=== PATIENT | male | born 1955 | race Caucasian/White ===

== ENCOUNTER 2019-09-02 15:32 | Emergency (ER) | payer OTHER, SELFPAY ==
[2019-09-02 15:43] VITALS: BP 172/104; PULSE 85; RESP 18; TEMP 36.6; O2SAT 99
--- NOTE | 2019-09-02 16:09 | ED.GENADULT ---
HPI - General Adult General Chief complaint: Unspecified Stated complaint: elevated bp Time Seen by Provider: 09/02/19 16:12 Source: patient and RN notes reviewed Mode of arrival: ambulatory Limitations: no limitations History of Present Illness HPI narrative: 64-year-old male presents with concern for elevated blood pressure. Reports he was seen at his eye doctor yesterday and had a blood pressure reading of 169/104. Reports he checked it at a station at [facility] today and it was 198/104. He reports in the past he has had elevated blood pressure, but not quite this high . He reports recently he has been taking [id number] cold medicine that had a warning that it may raise his blood pressure. He denies headache, vision changes, dizziness, weakness, numbness, fatigue. MD complaint: Elevated blood pressure Related Data Home Medications Medication Instructions Recorded Confirmed atorvastatin 40 mg tablet 40 mg PO DAILY 04/21/19 09/02/19 Co-Yvon 09/02/19 niacin 09/02/19 Allergies Allergy/AdvReac Type Severity Reaction Status Date / Time No Known Allergies Allergy Verified 09/02/19 15:48 Review of Systems Review of Systems: Narrative: CONSTITUTIONAL: Denies malaise, chills, sweats, or fever. EYES: Denies visual changes, redness, or discharge. CARDIOVASCULAR: Denies chest pain, palpitations, or edema. RESPIRATORY: Denies cough or dyspnea. GASTROINTESTINAL: Denies abdominal pain, nausea, vomiting GENITOURINARY: Denies dysuria or hematuria. NEUROLOGIC: Denies numbness, weakness, or headache. All systems reviewed & are unremarkable except as noted in HPI and below PMFSH Social History Social History Smoking status: Never smoker Comments At time of signature, agree with nursing past medical, surgical, social and family history. There is no relevant family history pertinent to the presenting complaint Exam Narrative: Exam Narrative: GENERAL: Well-appearing, well-nourished, and in no acute distress. HEAD: Normocephalic, atraumatic. EYES: PERRLA, conjunctivae clear, and EOMI. No nystagmus. Ophthalmoscope exam unremarkable ENT: Nares clear, turbinates edematous boggy, clear rhinorrhea mucous membranes moist. TM pearly darden with sharp light reflex bilaterally; no tragal tenderness. Oropharynx without erythema or lesions. Tonsils not enlarged and without exudate. NECK: Supple. No lymphadenopathy. No jugular venous distension, thyromegaly, or carotid bruits. CHEST: No respiratory distress. Clear to auscultation. No bony deformities, no asymmetry. Speaks in full sentences. HEART: Regular rate and rhythm. No murmur heard. Normal peripheral pulses. EXTREMITIES: Normal range of motion. No edema. Normal strength and sensation. SKIN: Warm, dry, no rash. NEURO: Alert and oriented x3. No focal deficits. Cranial nerves II through XII grossly intact PSYCH: Normal mood and affect Course Course Emergency Course: Patient is aware of diagnosis, understands and agrees to treatment plan. Anticipatory guidance given. Patient agrees to follow-up as directed and is aware of reasons to seek care at the emergency department. Portions of this record may have been created with voice recognition software Vital Signs Vital signs: Vital Signs Temperature 97.9 F 09/02/19 15:43 Pulse Rate 85 09/02/19 15:43 Respiratory Rate 18 09/02/19 15:43 Blood Pressure 172/104 H 09/02/19 15:43 Pulse Oximetry 99 09/02/19 15:43 Temperature 97.9 F 09/02/19 15:43 Pulse Rate 85 09/02/19 15:43 Respiratory Rate 18 09/02/19 15:43 Blood Pressure 172/104 H 09/02/19 15:43 Pulse Oximetry 99 09/02/19 15:43 Reviewed. Pt has been instructed to follow up with his primary care provider within the next week regarding his elevated blood pressure today. Medical Decision Making MDM Narrative Medical decision making narrative: Exam findings show no acute concerns or changes; patient
== END 2019-09-02 16:35 | disposition home or self-care (01) ==
PROVIDERS: Emergency Provider Nurse Practitioner; PCP Family Medicine
DX: R03.0 Elevated blood-pressure reading, without diagnosis of hypertension (principal); E78.00 Pure hypercholesterolemia, unspecified
CPT/HCPCS: 99211; G0463

== ENCOUNTER 2019-09-06 09:10 | Outpatient (CLI) | payer OTHER, SELFPAY ==
[2019-09-06 09:22] LABS: Basophils Absolute Auto 0.03 K/mm3 (0.00-0.10); Basophils Percent Auto 0.4 % (0.0-1.0); Eosinophils Percent Auto 1.5 % (1.0-6.0); Hematocrit 52.8 % (40.0-54.0); Hemoglobin 17.1 g/dL (14.0-18.0); Immature Granulocyte Absolute 0.04 K/mm3 (0.00-0.00); Immature Granulocyte Percent A 0.6 % (0.0-0.0); Lymphocytes Absolute Auto 1.59 K/mm3 (1.10-4.50); Lymphocytes Percent Auto 23.1 % (18.0-42.0); Mean Corpuscular HGB Conc 32.4 g/dL (32.0-36.0); Mean Corpuscular Hemoglobin 31.1 pg (27.0-31.0); Mean Platelet Volume 8.8 fl (8.7-11.0); Monocytes Absolute Auto 0.44 K/mm3 (0.10-0.90); Monocytes Percent Auto 6.4 % (2.0-11.0); Neutrophils Absolute Auto 4.7 K/mm3 (1.7-7.2); Platelet Count Result 309 K/mm3 (150-420); Red Cell Distribution Width 12.8 % (11.6-14.4); White Blood Count 6.9 K/mm3 (4.8-10.8)
[2019-09-06 10:08] LABS: Alanine Aminotransferase 56 U/L (16-63); Albumin Level 4.2 g/dL (3.4-5.0); Alkaline Phosphatase 90 U/L (46-116); Anion Gap 13.8 mmol/L (7-16); Aspartate Amino Transferase 23 U/L (15-37); Bilirubin,Total 0.4 mg/dL (0.00-1.00); Blood Urea Nitrogen 15 mg/dL (7-18); Calcium 9.3 mg/dL (8.5-10.1); Carbon Dioxide 29 mmol/L (21-32); Chloride 103 mmol/L (98-108); Cholesterol 183 mg/dL (0-200); Estimated Glomerular Filt Rate > 60; Glucose 111 mg/dL (70-99); HDL Direct 52 mg/dL (40-60); LDL Cholesterol Calculated 117 mg/dL (<130); Osmolality Calculated 293 mOsm/kg (285-295); Potassium 4.8 mmol/L (3.5-5.1); Sodium 141 mmol/L (136-145); Triglycerides 69 mg/dL (0-150)
[2019-09-06 10:28] LABS: Thyroid Stimulating Hormone Reflex 1.97 u/IU/mL (0.36-3.74)
== END 2019-09-06 09:11 | disposition home or self-care (01) ==
LOC: CHSLAB 09:12
PROVIDERS: PCP Family Medicine; Visit Provider Family Medicine
DX: I10 Essential (primary) hypertension (principal)
CPT/HCPCS: 36415; 80053; 80061; 84443; 85025

== ENCOUNTER 2021-09-01 14:45 | Outpatient (CLI) | payer MEDICARE, SELFPAY ==
[2021-09-01 14:59] LABS: Hematocrit 50.5 % (37.0-46.0); Hemoglobin 16.6 g/dL (12.4-15.3); Mean Corpuscular HGB Conc 32.9 g/dL (32.0-36.0); Mean Corpuscular Hemoglobin 31.6 pg (27.0-31.0); Mean Corpuscular Volume 96.2 fL (78.0-102.0); Platelet Count Result 339 K/mm3 (150-420); Red Blood Count 5.25 M/mm3 (4.70-6.10); Red Cell Distribution Width 12.6 % (11.6-14.4)
[2021-09-01 16:16] LABS: Alanine Aminotransferase 48 U/L (16-63); Albumin Level 3.9 g/dL (3.4-5.0); Alkaline Phosphatase 83 U/L (46-116); Anion Gap 11 mmol/L (8-16); Aspartate Amino Transferase 18 U/L (15-37); Bilirubin,Total 0.5 mg/dL (0.00-1.00); Blood Urea Nitrogen 15 mg/dL (7-18); Calcium 9.4 mg/dL (8.5-10.1); Carbon Dioxide 27 mmol/L (21-32); Chloride 103 mmol/L (98-108); Cholesterol 185 mg/dL (0-200); Estimated Glomerular Filt Rate > 60; Glucose 87 mg/dL (70-99); HDL Direct 44 mg/dL (40-60); LDL Cholesterol Calculated 118 mg/dL (<130); Osmolality Calculated 291 mOsm/kg (285-295); Potassium 4.3 mmol/L (3.5-5.1); Sodium 141 mmol/L (136-145); Total Protein 7.7 g/dL (6.4-8.2); Triglycerides 117 mg/dL (0-150); Vitamin B12 536 pg/mL (193-986)
[2021-09-01 16:25] LABS: Thyroid Stimulating Hormone Reflex 1.59 u/IU/mL (0.36-3.74)
== END 2021-09-01 14:46 | disposition home or self-care (01) ==
LOC: CHSLAB 14:49
PROVIDERS: PCP Family Medicine; Visit Provider Family Medicine
DX: E78.00 Pure hypercholesterolemia, unspecified (principal); I10 Essential (primary) hypertension; E11.9 Type 2 diabetes mellitus without complications; E53.8 Deficiency of other specified B group vitamins
CPT/HCPCS: 36415; 80053; 80061; 82607; 82746; 84443; 85027

== ENCOUNTER 2021-09-09 06:42 | Outpatient (CLI) | payer MEDICARE, SELFPAY ==
--- NOTE | ~2021-09-09 | MR_ITS ---
EXAMINATION: MR cervical spine wo con EXAM DATE: 09/09/2021 07:46 INDICATION: Pain In Both Arms W/Numbness/Tingling X2mo,S/P lifting Injury. TECHNIQUE: Multi-sequential, multiplanar MR images of the cervical spine were obtained without contra st. Axial T2, axial T2 MERGE sequence. Sagittal T1, T2, T2 fat saturation images also obtained. Th ere is no prior study for comparison. FINDINGS: There is moderate disc disease at C5-6 and C6-7. The spinal cord signal intensity and intr insic morphology is normal. Cervicomedullary junction is normal in appearance. There are no suspiciou s marrow signal abnormalities. Paraspinal soft tissue is unremarkable. The vertebral bodies are align ed in the AP dimension. Level by level evaluation: C2-C3: Disc does not extend beyond the endplate margin. Uncovertebral joint arthropathy: None. Facet joint arthropathy: Mild left. Neural foraminal stenosis: No stenosis. Central canal stenosis: No stenosis. C3-C4: There is a minimal diffuse disc bulge. Uncovertebral joint arthropathy: Mild to moderate bilateral. Facet joint arthropathy: Moderate bilateral. Neural foraminal stenosis: Moderate severe left, moderate right. Central canal stenosis: Mild. C4-C5: There is a minimal diffuse disc bulge. Uncovertebral joint arthropathy: Mild to moderate bilateral. Facet joint arthropathy: Moderate right, mild to moderate left. Neural foraminal stenosis: Mild to moderate right, mild left. Central canal stenosis: Mild. C5-C6: There is a mild diffuse disc bulge. Uncovertebral joint arthropathy: Moderate bilateral. Facet joint arthropathy: Mild to moderate bilateral. Neural foraminal stenosis: Moderate left, mild right. Central canal stenosis: Mild. C6-C7: There is a mild diffuse disc bulge. Uncovertebral joint arthropathy: Moderate right, mild left. Facet joint arthropathy: Mild bilateral. Neural foraminal stenosis: Moderate right, mild left. Central canal stenosis: Mild. C7-T1: Disc does not extend beyond the endplate margin. Uncovertebral joint arthropathy: Mild bilateral. Facet joint arthropathy: Mild bilateral. Neural foraminal stenosis: No stenosis. Central canal stenosis: No stenosis. IMPRESSION: 1. Moderate cervical spondylosis. 2. No acute findings. Reviewed, dictated and finalized at location G.
== END 2021-09-09 06:43 | disposition home or self-care (01) ==
LOC: CHSIMG 06:44
PROVIDERS: PCP Family Medicine; Visit Provider Family Medicine
DX: M54.12 Radiculopathy, cervical region (principal)
CPT/HCPCS: 72141

== ENCOUNTER 2022-01-31 06:40 | Outpatient (CLI) | payer MEDICARE, SELFPAY ==
--- NOTE | ~2022-01-31 | MR_ITS ---
EXAMINATION: MR lumbar spine wo con DATE: 01/31/2022 10:22 INDICATION: Lumbar radiculopathy TECHNIQUE: Magnetic resonance imaging (MRI) of the lumbar spine was performed without intravenous con trast. Sequences included sagittal T2-weighted FSE, sagittal T2-weighted FS FSE, sagittal T1-weighted FSE, and axial T2-weighted FSE. COMPARISON: None FINDINGS: Transitional thoracolumbar segment for purposes of this report designated L1 with right-sided transve rse process and small hypoplastic riblet on the left. There are 4 more caudal nonrib-bearing lumbar s egments L2-L5. 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 There is associated severe disc height loss and degenerative fibrovascular endplate abebe ges. Vertebral body heights are normal. Otherwise normal marrow signal. Remaining disc heights are p reserved. The conus medullaris terminates at L2. There is normal signal in the caudal spinal cord. Pa ravertebral soft tissues are unremarkable. The following disc levels are specifically discussed: T12-L1: The disc does not extend beyond the endplate margin. There is mild bilateral facet joint oste oarthritis. There is no neural foraminal stenosis. There is no central canal stenosis. L1-L2: Disc is bulging. There is mild bilateral facet joint osteoarthritis. There is mild bilateral n eural foraminal stenosis. There is mild central canal stenosis. L2-L3: Disc is bulging with annular fissure. There is mild bilateral facet joint osteoarthritis. Ther e is moderate bilateral neural foraminal stenosis. There is mild central canal stenosis. L3-L4: Disc is bulging with annular fissure and small right paracentral disc extrusion with disc mate rial extending couple millimeters cephalad to the level of the inferior endplate of L3 and measuring 5 x 3 mm maximal transaxial dimensions. There is mild bilateral facet joint osteoarthritis. There is altered left and mild to moderate right neural foraminal stenosis. There is mild central canal stenos is. L4-L5: The disc does not extend beyond the endplate margin. There is mild right and moderate left fac et joint osteoarthritis. There is mild right and mild to moderate left neural foraminal stenosis. The re is no central canal stenosis. L5-S1: Annular fissure and broad-based disc extrusion extending from foraminal zone to foraminal zone with disc material extending up to 4 mm cephalad to the level of the inferior endplate of L5. In add ition to the bilateral pars intra-articular is defects there is mild bilateral facet joint osteoarthr itis. There is moderate to severe bilateral neural foraminal stenosis. There is no central canal sten osis. IMPRESSION: 1. L5 spondylolysis with bilateral pars intra-articular is defects and 6 mm anterolisthesis on S1. 2. Severe associated spondylosis at L5-S1 with moderate to severe bilateral neural foraminal stenosis at this level. Mild spondylosis in the more cephalad lumbar spine. Reviewed, dictated and finalized at location A. IMPRESSION: 1. 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 2. Severe associated spondylosis at L5-S1 with moderate to severe bilateral mary ral foraminal stenosis at this level. Mild spondylosis in the more cephalad lum bar spine.
== END 2022-01-31 06:41 | disposition home or self-care (01) ==
PROVIDERS: PCP Family Medicine
DX: M54.16 Radiculopathy, lumbar region (principal)
CPT/HCPCS: 72148